=== PATIENT | female | born 1970 | race Caucasian/White ===

== ENCOUNTER 2020-05-22 06:52 | Outpatient (NON) | payer OTHER, SELFPAY ==
[2020-05-23 21:14] LABS: SARS-CoV-2 RNA PCR Negative
== END 2020-05-22 06:53 ==
LOC: ANHCOVIDDT 07:03
PROVIDERS: PCP Internal Medicine; Visit Provider Nurse Practitioner
DX: R50.9 Fever, unspecified (principal); Z20.828 Contact with and (suspected) exposure to other viral communicable diseases
CPT/HCPCS: 87635; C9803; U0003